=== PATIENT | female | born 1995 | race Caucasian/White ===

== ENCOUNTER 2017-01-23 17:43 | Emergency (ER) | payer BC ==
[2017-01-23 17:55] VITALS: BP 123/86
--- NOTE | 2017-01-23 18:51 | RAD ---
Indication: RIGHT thumb tenderness and bruising post crush injury in car door 2 days ago. Pain at distal phalanx level. Comparison: No relevant prior exams available on the [facility] PACS for comparison. Technique: AP, lateral, and oblique views RIGHT thumb. REPORT AND IMPRESSION: Negative for fracture or malalignment. Soft tissue swelling distally including at the level of the nail bed. Correlate for potential subungual hematoma. No subcutaneous emphysema or conspicuous foreign body.
--- NOTE | 2017-02-01 17:08 | UC ---
Keaton Disla Nikita, scribed for Lucero Tovar DO on 01/23/17 at 1840 . Hand/Wrist HPI - HPI Summary HPI Summary: This patient is a 21 year old F presenting to [facility] with a chief complaint of R thumb injury since 2 days ago. Pt slammed her R thumb in a car door. The CC is described as constant, aching, and throbbing. The patient rates the pain 3-4/10 in severity at best. At its worst, the pt rates the pain 8/10. Symptoms aggravated by movement. Symptoms alleviated by nothing. Pt reports the nail is starting to come off. - History Of Current Complaint Chief Complaint: UCUpperExtremity Stated Complaint: thumb injury Time Seen by Provider: 01/23/17 18:17 Hx Obtained From: Patient Hx Last Menstrual Period: 12/24/16 Mechanism Of Injury: R thumb slammed in car door. Onset/Duration: Sudden Onset, Lasting Days - 2 days ago, Still Present Severity Initially: Moderate Severity Currently: Moderate Pain Intensity: 4 Pain Scale Used: 0-10 Numeric Character Of Pain: Aching, Throbbing Aggravating Factor(s): Movement Alleviating Factor(s): Nothing Associated Signs And Symptoms: Positive: Other - Pt reports the nail on R thumb is starting to come off. - Allergies/Home Medications Allergies/Adverse Reactions: Allergies Allergy/AdvReac Type Severity Reaction Status Date / Time No Known Allergies Allergy Verified 01/23/17 17:55 Home Medications: Home Medications buPROPion SR TAB* [Wellbutrin SR TAB*] 150 mg PO DAILY 01/23/17 [History Confirmed 01/23/17] PMH/Surg Hx/FS Hx/Imm Hx Endocrine History: Other Other Endocrine History: No DM Cardiovascular History: Other Other Cardiovascular History: No HTN Respiratory History: Other Other Respiratory History: No asthma - Surgical History Surgical History: None - Family History Known Family History: Positive: Hypertension, Other Family History: Hypothyroid - Social History Alcohol Use: Occasionally Substance Use Type: None Smoking Status (MU): Never Smoked Tobacco Review of Systems Constitutional: Negative Musculoskeletal: Other: - R thumb pain All Other Systems Reviewed And Are Negative: Yes Physical Exam Triage Information Reviewed: Yes Appearance: Well-Appearing, No Pain Distress, Well-Nourished Vital Signs: Initial Vital Signs Temp 98.7 F 01/23/17 17:51 Pulse 78 01/23/17 17:51 Resp 18 01/23/17 17:51 BP 123/86 01/23/17 17:51 Pulse Ox 100 01/23/17 17:51 Vital Signs Reviewed: Yes Eyes: Positive: Conjunctiva Clear. Negative: Discharge ENT: Positive: Hearing grossly normal, Other: - Voice normal. Negative: Muffled /hoarse voice Neck exam: Normal Neck: Positive: Supple Respiratory: Positive: Lungs clear, Normal breath sounds, No respiratory distress, No accessory muscle use Cardiovascular: Positive: RRR, No Murmur Musculoskeletal Exam: Other - Tender to palpation at distal first metacarpal, proximal and distal phalange. Nail appears to be to nail bed but still quite soundly attached. Pt wearing thick nail greek which made it impossible to evaluate for subungual hematoma. Pt was extremely nervous and absolutely refuses to clean off nail greek to evaluate for subungual hematoma. Neurological: Positive: Alert, Muscle Tone Normal Psychological Exam: Normal Psychological: Positive: Age Appropriate Behavior Skin Exam: Normal, Other - Warm, Dry, Normal color Diagnostics - Radiology R thumb XR Radiology Interpretation Completed By: Radiologist - Negative for fracture or malalignment. Soft tissue swelling distally including at the level of the nail bed. Correlate for potential subungual hematoma. No subcutaneous emphysema or conspicuous foreign body. [facility] has reviewed this radiology report and agrees. Hand/Wrist Course/Dx - Course Course Of Treatment: This patient is a 21 year old F presenting to [facility] with a chief complaint of R thumb injury since 2 days ago. Pt slammed her R thumb in a car door. The CC is described as constant, aching, and throbbing. The patient rates the pain 3-4/10 in severity at best. At its worst, the pt rates the pain 8 /10. Symptoms aggravated by movement. Symptoms alleviated by nothing. Pt reports the nail is starting to come off. Medications reviewed. Pt will be discharged. Pt is agreeable with this plan. - Differential Dx/Diagnosis Provider Diagnoses: subungual hematoma Discharge - Discharge Plan Condition: Stable Disposition: HOME Patient Education Materials: Subungual Hematoma (ED), Contusion in Adults (ED) , Splint Care (ED) Forms: *School Release Referrals: No Primary Care Phys,NOPCP [Primary Care Provider] - Additional Instructions: In your XR report, we do not see any fracture, but we do see soft tissue swelling under the nail bed. If the skin beneath the nail is lacerated, similar to any other skin cut, it may not heal properly. This complication can result in deformity of the nail and the nail growth. The deformity may be temporary and go away after the nail grows out, or it may be permanent, and you may have an obviously deformed nail forever. FOLLOW-UP CARE: You should establish with a private physician for follow-up care in 3 days.. If you are unable to get a timely appointment, or if you are worsening, call us or return for re-evaluation. An additional resource available to assist in finding the appropriate physician for your health care needs is the Physician Referral Center. You may contact them by calling [phone]. WE RECOMMEND [facility] The documentation as recorded by the Keaton goncalves Nikita accurately reflects the service I personally performed and the decisions made by me, Lucero Tovar DO.
== END 2017-01-23 19:45 | disposition home or self-care (01) ==
LOC: UCEAST 17:43
DX: S60.111A Contusion of right thumb with damage to nail, initial encounter (principal); W23.0XXA Caught, crushed, jammed, or pinched between moving objects, initial encounter; Y93.9 Activity, unspecified; Y92.810 Car as the place of occurrence of the external cause
CPT/HCPCS: 99212; G0463